=== PATIENT | female | born 1955 | race Caucasian/White ===

== ENCOUNTER 2018-02-16 07:14 | Emergency (ER) | payer OTHER ==
[~2018-02-16] VITALS: Ht 165.1 cm; Wt 69.1 kg
[~2018-02-16 07:14] MED LIST: AMLODIPINE BESYL5 M1 PO; ASPIRIN EC81 M1 PO; ATORVASTATIN CA40 MG PO; BUTALB-ACETAMI1 EACH PO; CIPRO 500MG TA500 MG PO; ECOTRIN81 MG PO; FIORICET 325 MG1 TAB PO; HYDRODIURIL 2525 MG PO; LEVOTHYROXIN0.112 MG PO; LEVOTHYROXINE112 MCG PO; LIPITOR20 M2 PO; LISINOPRIL20 M1 PO; LISINOPRIL20 MG PO; NORVASC 5MG TAB5 MG PO; PERCOCET 325 MG1 TA2 PO; PERCOCET 5-3251 EACH PO; TOPROL XL 25MG25 MG PO; TOPROL XL25 M1 PO; TYLENOL XSTR500 MG PO; VITAMIN D250000 UNIT PO; ZOFRAN ODT4 MG PO
--- NOTE | 2018-02-16 07:53 | ED ANKLE/FOOT INJURY COMPLAINT ---
History of Present Illness General Chief Complaint: Fall Stated Complaint: 2ND FALL ON BROKEN ANKLE PAIN TO GREAT Source: patient Exam Limitations: no limitations Vital Signs & Intake/Output Vital Signs & Intake/Output Vital Signs Date Time Temp Pulse Resp B/P B/P Pulse O2 O2 Flow FiO2 Mean Ox Delivery Rate 02/16 0828 99.0 88 20 120/80 98 Room Air 02/16 0721 99.3 96 18 127/80 97 Room Air Allergies Coded Allergies: NO KNOWN ALLERGIES (02/13/18) Reconcile Medications Amlodipine Besylate 5 MG TABLET 1 TAB PO DAILY BP (Reported) Aspirin (Ecotrin*) 81 MG TABLET.DR 1 TAB PO DAILY HEART/BLOOD (Reported) Atorvastatin Calcium (Lipitor) 20 MG TABLET 1 TAB PO QPM CHOLESTEROL ( Reported) Butalb/Acetaminophen/Caffeine (Skzbta-Ubjqfbwj-Uncy 50-325-40) 50 MG-325 MG-40 MG TABLET 1 TAB PO PRN HEADACHE (Reported) Ergocalciferol (Vitamin D2) (Vitamin D2) 50,000 UNIT CAPSULE 1 CAP PO QTUES SUPPLEMENT (Reported) Levothyroxine Sodium 112 MCG TABLET 1 TAB PO DAILY THYROID (Reported) Lisinopril 20 MG TABLET 1 TAB PO DAILY BP (Reported) Metoprolol Succ XL (Toprol XL) 25 MG TAB 1 TAB PO DAILY HEART/BP (Reported) Oxycodone HCl/Acetaminophen (Percocet 5-325 MG Tablet) 5 MG-325 MG TABLET 1-2 TAB PO Q6P PRN PAIN Triage Note: PT SEEN LAST AND SPLINT PLACED TO RIGHT LOWER EXT. FOR FX. PT SLIPPED OFF TOILET LAST . AND FEELS {CAST} SPLINT MOVED. PT STATES SHE HAS SURGERY SCHEDULED FOR SATURDAY BUT DOESN'T THINK SHE CAN WAIT UNTIL THEN. Triage Nurses Notes Reviewed? yes HPI: 62-year-old female with past medical history of hypertension hyperlipidemia, TIA and PA with 2 stent placement was brought to ED with chief complaint of mechanical fall day before yesterday and having pain in her right ankle and left knee. Patient reported that she had a fall last at her work. She had a mechanical fall when she was moving up and out of the stair at her work. She broke her ankle and she was brought to ED with cast was placed. She was scheduled for surgery of right ankle But patient fell down again day before yesterday. That was a mechanical fall again and she had pain in her left knee. According to the patient she twisted her knee. She also reported having excruciating pain in right ankle 10/10. She took 2 Percocet last night and now her pain is 6/10 nonradiating, continuous, aggravated with movement and relieved with rest. Patient has bruises on both legs after the fall. Patient denied chest pain, palpitation, nausea, vomiting, diarrhea, constipation , abdominal pain and dysuria. (Doni JUSTICE,Jorje) Past History Travel History Traveled to past 21 day No Medical History Neurological: TIA'S EENT: NONE Cardiovascular: HYPERTENSION SILENT M.I. CARDIAC CATH WITH STENT X 2 Renal: kidney stones Blood Disorders: ELEVATED CHOLESTEROL Surgical History Surgical History: non-contributory, N Psychosocial History What is your primary language Honduran Tobacco Use: Current Daily Use Daily Tobacco Use Amount/Type: => 5 Cigarettes daily ETOH Use: occasional use Illicit Drug Use: denies illicit drug use (Doni JUSTICE,Jorje) Medical History Any Pertinent Medical History? see below for history Family History Hx Contributory? No (Paolo JUSTICE,Alexis Sawant) Review of Systems Review of Systems Constitutional: Denies: chills, fever, weakness. EENTM: Reports: no symptoms. Respiratory: Denies: cough, short of breath, sputum production, wheezing. Cardiovascular: Denies: chest pain, palpitations, syncope. GI: Denies: abdominal pain, diarrhea, nausea, vomiting. Genitourinary: Reports: no symptoms. Musculoskeletal: Reports: see HPI. Skin: Reports: see HPI. Neurological/Psychological: Reports: no symptoms. (Doni JUSTICE,Recinos) Physical Exam Physical Exam General Appearance: well developed/nourished, no apparent distress, alert, awake Head: atraumatic, normal appearance Eyes: Bilateral: normal appearance, PERRL, EOMI. Ears, Nose, Throat: normal pharynx Neck: normal inspection, supple, full range of motion Cardiovascular/Respiratory: normal breath sounds Back: normal inspection, normal range of motion Leg/Knee/Thigh Left: normal range of motion, pain, bruise on left leg Leg/Knee/Thigh Right: cast is already placed on right ankle, bruise on right leg , able to move her right toes Ankle Left: normal inspection, normal range of motion Ankle Right: tenderness, limited range of motion, Right ankle is in cast already Foot Left: normal inspection, normal range of motion Foot Right: limited range of motion (Doni JUSTICE,Jorje) Progress Differential Diagnosis: fracture, dislocation, sprain Plan of Care: XRAY Comments: Patient already has right ankle cast on last . Considering patient has another fall day before yesterday we will repeat right ankle x-ray and also we will do left knee x-ray to rule out any fracture or dislocation. Refer x-rays comes back normal and no further problems with the right ankle we will give patient pain medication and discharged her. Patient will follow up with orthopedic surgeon for her scheduled right ankle surgery after cardiac clearance. Patient reported that she has enough supply of Percocet at home and she doesn't need any other prescription. He left knee x-ray came back normal and her right ankle x-ray showed still the same previous fracture and nothing has been changed after the second fall. Patient will be discharged and advised to follow her orthopedic surgeon for scheduled surgery. (Jorje Marion MD) Plan of Care: XRAY Diagnostic Imaging: Viewed by Me: Radiology Read. Discussed w/RAD: Radiology Read. Radiology Impression: NO ACUTE FINDINGS (Paolo JUSTICE,Alexis Sawant) Departure Departure Disposition: HOME OR SELF CARE Condition: Stable Clinical Impression Primary Impression: Sprain of left knee Secondary Impressions: Traumatic ecchymosis of left lower leg Referrals: Brandt Chew MD (PCP/Family) Additional Instructions: Please follow-up with your primary care physician in one week. Please follow-up with your orthopedic surgeon for scheduled right ankle surgery after cardiac clearance. Please take your pain medications regularly. Please take care of your sent for try to avoid any mechanical fall that further complicates your right ankle fracture. Departure Forms: Customer Survey General Discharge Information (Jorje Marion MD) Resident Co-Sign Statement Statement: ED Attending supervision documentation- [X] I saw and evaluated the patient. I have also reviewed all the pertinent lab results and diagnostic results. I agree with the findings and the plan of care as documented in the Resident's documentation. [X] I have reviewed the ED Record and agree with the Resident's documentation. [] Additions or exceptions (if any) to the Resident's note and plan are summarized below: [] (Paolo JUSTICE,Alexis Sawant)
[2018-02-16 08:28] VITALS: BP 120/80
--- NOTE | 2018-02-16 08:30 | RADIOLOGY REPORT ---
EXAMINATION: XR KNEE, LEFT CLINICAL INFORMATION: Pain post fall COMPARISON: None TECHNIQUE: Four views of the left knee. FINDINGS: Bone alignment is normal. No fracture or dislocation is seen. Joint spaces are normal. There is no joint effusion. There may be lateral and posterior varices. There is evidence of mild atherosclerotic disease. IMPRESSION: No fracture or dislocation seen.
--- NOTE | 2018-02-16 08:40 | RADIOLOGY REPORT ---
EXAMINATION: XR ANKLE, RIGHT CLINICAL INFORMATION: Pain after a fall. COMPARISON: Previous x-ray 02/13/2018 TECHNIQUE: 2 views of the right ankle. FINDINGS: There is a new overlying cast. There is no appreciable change to the trimalleolar right ankle fracture from February 13. There is slight posterior and lateral displacement of the lateral malleolus with respect to the more proximal shaft. There is slight lateral displacement of the tip of the medial malleolus. This is unchanged. Posterior malleolar fracture appears nondisplaced. The ankle mortise is unchanged with a question of widening of the distal tibiofibular space. There are degenerative changes at the first MTP joint. Soft tissues are unremarkable. IMPRESSION: No change in trimalleolar right ankle fracture from 02/13/2018.
== END 2018-02-16 08:28 ==
LOC: ERH 07:14
DX: S83.92XA Sprain of unspecified site of left knee, initial encounter (principal); S80.12XA Contusion of left lower leg, initial encounter; M25.571 Pain in right ankle and joints of right foot; W19.XXXA Unspecified fall, initial encounter
CPT/HCPCS: 73560-LT; 73600-RT

== ENCOUNTER 2018-02-21 16:11 | Observation (INO) | payer OTHER ==
[~2018-02-21] VITALS: Ht 165.1 cm; Wt 70.3 kg
--- NOTE | 2018-02-21 16:19 | ED SKIN/ALLERGY COMPLAINT ---
History of Present Illness General Chief Complaint: General Adult Stated Complaint: BIBA WITH SWELLING AND TONGUE SWELLING Source: patient, EMS Exam Limitations: no limitations Vital Signs & Intake/Output Vital Signs & Intake/Output Vital Signs Date Time Temp Pulse Resp B/P B/P Pulse O2 O2 Flow FiO2 Mean Ox Delivery Rate 02/22 0808 98.4 76 18 126/88 98 Room Air 02/22 0638 99.7 100 18 115/62 98 Room Air 02/22 0127 99.1 101 18 144/99 99 Room Air 02/21 2233 99 18 124/67 96 Room Air 02/21 1953 89 16 159/70 98 02/21 1745 176/103 02/21 1742 99.1 103 17 175/103 95 Room Air ED Intake and Output 02/22 0000 02/21 1200 Intake Total 100 Output Total Balance 100 Intake, IV 100 Patient 155 lb Weight Allergies Coded Allergies: NO KNOWN ALLERGIES (02/13/18) Reconcile Medications Amlodipine Besylate 5 MG TABLET 1 TAB PO DAILY BP (Reported) Aspirin (Ecotrin*) 81 MG TABLET.DR 1 TAB PO DAILY HEART/BLOOD (Reported) Atorvastatin Calcium (Lipitor) 20 MG TABLET 1 TAB PO QPM CHOLESTEROL ( Reported) Butalb/Acetaminophen/Caffeine (Iitcrc-Bwjbncsd-Yjdn 50-325-40) 50 MG-325 MG-40 MG TABLET 1 TAB PO PRN HEADACHE (Reported) Ergocalciferol (Vitamin D2) (Vitamin D2) 50,000 UNIT CAPSULE 1 CAP PO QTUES SUPPLEMENT (Reported) Levothyroxine Sodium 112 MCG TABLET 1 TAB PO DAILY THYROID (Reported) Lisinopril 20 MG TABLET 1 TAB PO DAILY BP (Reported) Metoprolol Succ XL (Toprol XL) 25 MG TAB 1 TAB PO DAILY HEART/BP (Reported) Oxycodone HCl/Acetaminophen (Percocet 5-325 MG Tablet) 5 MG-325 MG TABLET 1-2 TAB PO Q6P PRN PAIN Triage Nurses Notes Reviewed? yes Onset: Abrupt Duration: hour(s):, constant, continues in ED Timing: recent history Severity: moderate, severe No Modifying Factors: none HPI: 62 -year-old female comes into the emergency room for further evaluation of tongue swelling. She had surgery on her right ankle today at [facility]. She went home and woke up from a nap and found that her tongue was swollen she was having difficulty breathing and came in by ambulance. She is on lisinopril. She denies taking it today. Denies any other associated symptoms or prior history of this. (Geovanni Bernabe) Past History Travel History Traveled to past 21 day No Medical History Any Pertinent Medical History? see below for history Neurological: TIA'S EENT: NONE Cardiovascular: HYPERTENSION SILENT M.I. CARDIAC CATH WITH STENT X 2 Renal: kidney stones Blood Disorders: ELEVATED CHOLESTEROL Surgical History Surgical History: non-contributory, N Psychosocial History What is your primary language Armenian Family History Hx Contributory? No (Geovanni Bernabe) Review of Systems Review of Systems Constitutional: Reports: no symptoms. EENTM: Reports: see HPI. Respiratory: Reports: see HPI. Cardiovascular: Reports: no symptoms. GI: Reports: no symptoms. Genitourinary: Reports: no symptoms. Musculoskeletal: Reports: no symptoms. Skin: Reports: no symptoms. Neurological/Psychological: Reports: no symptoms. Hematologic/Endocrine: Reports: no symptoms. Immunologic/Allergic: Reports: no symptoms. All Other Systems: Reviewed and Negative (Geovanni Bernabe) Physical Exam Physical Exam General Appearance: well developed/nourished, mild distress Head: atraumatic Eyes: Bilateral: normal appearance. Ears, Nose, Throat: normal ENT inspection, hearing grossly normal, angioedema right side of tongue Neck: swelling right side of neck Respiratory: no respiratory distress Back: normal inspection Extremities: normal inspection, normal range of motion, no edema Neurologic/Psych: awake, alert, oriented x 3, normal mood/affect Skin: intact Lymphatic: no anterior cervical rose (Geovanni Bernabe) Progress Differential Diagnosis: abscess/cellulitis, allergic reaction, anaphylaxis, angioedema, asthma, contact dermatitis, drug reaction Plan of Care: Orders Procedure Date/time Status Regular Diet 02/22 B Active Vital Signs 02/21 2138 Active Teach/Educate 02/21 2138 Active Pain Treatment and Response 02/21 2138 Active Nutritional Intake, Monitor 02/21 2138 Active Isolation 02/21 2138 Active Patient Care Conference 02/21 2138 Active Activity/Ambulation 02/21 2138 Active Saline Lock 02/[address] in observation 02/21 2126 Active ED Holding Orders 02/21 2126 Active Patient Data 02/21 2126 Active Code Status 02/21 2126 Active Intake & Output 02/21 1823 Active COMPREHENSIVE METABOLIC PANEL 02/21 1719 Complete CBC WITHOUT DIFFERENTIAL 02/21 1719 Complete Laboratory Tests 02/21/18 171: Anion Gap 11, Estimated GFR 42 L, BUN/Creatinine Ratio 25.4 H, Glucose 126 H, Calcium 9.1, Total Bilirubin 0.3, AST 27, ALT 22, Alkaline Phosphatase 78, Total Protein 7.2, Albumin 4.1, Globulin 3.1, Albumin/Globulin Ratio 1.3, CBC w Diff MAN DIFF ORDERED, RBC 3.09 L, MCV 94.0, MCH 31.4 H, MCHC 33.4, RDW 14.2, MPV 7.7, Gran % 89.5 H, Lymphocytes % 7.1 L, Monocytes % 3.4, Eosinophils % 0, Basophils % 0, Absolute Granulocytes 8.8 H, Segmented Neutrophils 84 H, Band Neutrophils 7 H, Absolute Lymphocytes 0.7 L, Lymphocytes 5 L, Monocytes 4, Absolute Monocytes 0.3, Absolute Eosinophils 0, Absolute Basophils 0, Platelet Estimate ADEQUATE, Hypochromic-Microcytic 1+, Anisocytosis 1+, Macrocytic Cells 1+ Diagnostic Imaging: Viewed by Me: CT Scan. Discussed w/RAD: CT Scan. Radiology Impression: PATIENT: ALLISON BAIG PRESENT AGE: 62 PATIENT ACCOUNT NO: [id number] : 57 LOCATION: [facility] ORDERING PHYSICIAN: Geovanni ROTH SERVICE DATE: 02/21/18 EXAM TYPE : CAT - CT NECK WO IV CONTRAST EXAMINATION: CT NECK WITHOUT CONTRAST CLINICAL INFORMATION: Swelling right side of neck and tongue. COMPARISON: None TECHNIQUE: No IV contrast or oral contrast. Axial images obtained through the neck. Coronal and sagittal reformatted images are performed at the CT scanner DLP: 495.41. mGy -cm FINDINGS: The right submandibular gland is enlarged and swollen with edema surrounding the gland. There is no calcification associated with the gland or at the floor the mouth. The left submandibular gland is normal. Parotid glands are normal. There is no significant lymphadenopathy. There are small subcentimeter shotty lymph nodes in the neck. Lung apices are clear. There is a calcified granuloma in the right upper lobe measuring 5 mm. There is vascular calcifications of aortic arch and at the origin of the great vessels. The orbits and retrobulbar structures are unremarkable. The partially visualized intracranial structures are unremarkable. There are vascular wall calcifications at the aortic arch. The paranasal sinuses and mastoid air cells are normally aerated. There is degenerative spondylosis of the cervical spine with disc height narrowing and vacuum disc phenomena and endplate spurring C4-C5 and C5- C6. IMPRESSION: Enlargement and swelling of the right submandibular gland but no calcification is seen associated with the gland at the floor the mouth. The left submandibular gland is normal. DICTATED BY: Newton Boswell MD DATE/TIME DICTATED: 02/21/181715 BIOLOGY DEPARTMENT CHAIR:FLORENTIN DATE/TIME TRANSCRIBED:02/21/181715 CONFIDENTIAL, DO NOT COPY WITHOUT APPROPRIATE AUTHORIZATION. <Electronically signed in Other Vendor System> SIGNED BY: Newton Boswell MD 02/21/181726 Hand-Off Endorsed To: Cleveland Bello MD Endorsed Time: 2111 Pending: other (Geovanni Bernabe) Comments: Patient was discharged with the plan made by . Patient was not evaluated or seen by me. ([place] JUSTICE,[facility]) Departure Departure Clinical Impression Primary Impression: Angioedema Referrals: Brandt Chew MD (PCP/Family) Departure Forms: Customer Survey General Discharge Information (Geovanni Bernabe) Departure Comments 02/22/18, 7am... pt feels comfortable, passed an uneventful night... discussed stopping lisinopril... awaiting ride... signed out to dr. ortiz. PA/PRODUCTION REPRODUCTION MANAGER Co-Sign Statement Statement: ED Attending supervision documentation- [X] I saw and evaluated the patient. I have also reviewed all the pertinent lab results and diagnostic results. I agree with the findings and the plan of care as documented in the PA's/PRODUCTION REPRODUCTION MANAGER's documentation. [] I have reviewed the ED Record and agree with the PA's/PRODUCTION REPRODUCTION MANAGER's documentation. [] Additions or exceptions (if any) to the PAs/PRODUCTION REPRODUCTION MANAGER's note and plan are summarized below: [] ([employer] JUSTICE,Cleveland Ceballos) Departure Time of Disposition: 807 Disposition: HOME OR SELF CARE Condition: Stable PA/PRODUCTION REPRODUCTION MANAGER Co-Sign Statement Statement: ED Attending supervision documentation- [] I saw and evaluated the patient. I have also reviewed all the pertinent lab results and diagnostic results. I agree with the findings and the plan of care as documented in the PA's/PRODUCTION REPRODUCTION MANAGER's documentation. [] I have reviewed the ED Record and agree with the PA's/PRODUCTION REPRODUCTION MANAGER's documentation. [] Additions or exceptions (if any) to the PAs/PRODUCTION REPRODUCTION MANAGER's note and plan are summarized below: [] ([place] JUSTICE,[facility]) ED Attending Observation Initial Observation Note: I have seen and personally examined ALLISON BAIG on 02/21/18 at 2126. I agree with the current emergency department documentation. The disposition (admission or discharge) is uncertain at this time, she needs a period of observation for the following reason(s): Pt with angioedema of uncertain etiology.... now feeling better... but given recent surgery and pt's concern, will monitor overnight, anticipate d/c in AM. The ED Nurse caring for this patient has been personally informed as to what the patient is being observed for. (Ace JUSTICE,Cleveland Ceballos)
--- NOTE | 2018-02-21 17:27 | CT SCAN REPORT ---
EXAMINATION: CT NECK WITHOUT CONTRAST CLINICAL INFORMATION: Swelling right side of neck and tongue. COMPARISON: None TECHNIQUE: No IV contrast or oral contrast. Axial images obtained through the neck. Coronal and sagittal reformatted images are performed at the CT scanner DLP: 495.41. mGy-cm FINDINGS: The right submandibular gland is enlarged and swollen with edema surrounding the gland. There is no calcification associated with the gland or at the floor the mouth. The left submandibular gland is normal. Parotid glands are normal. There is no significant lymphadenopathy. There are small subcentimeter shotty lymph nodes in the neck. Lung apices are clear. There is a calcified granuloma in the right upper lobe measuring 5 mm. There is vascular calcifications of aortic arch and at the origin of the great vessels. The orbits and retrobulbar structures are unremarkable. The partially visualized intracranial structures are unremarkable. There are vascular wall calcifications at the aortic arch. The paranasal sinuses and mastoid air cells are normally aerated. There is degenerative spondylosis of the cervical spine with disc height narrowing and vacuum disc phenomena and endplate spurring C4-C5 and C5-C6. IMPRESSION: Enlargement and swelling of the right submandibular gland but no calcification is seen associated with the gland at the floor the mouth. The left submandibular gland is normal.
[2018-02-21 17:42] LABS: ABSOLUTE BASOPHIL COUNT 0 /CUMM (0.0-0.2); ABSOLUTE EOSINOPHIL COUNT 0 /CUMM (0.0-0.7); ABSOLUTE GRANULOCYTE CT 8.8 /CUMM (1.4-6.5); ABSOLUTE LYMPH COUNT 0.7 /CUMM (1.2-3.4); ABSOLUTE MONOCYTE COUNT 0.3 /CUMM (0.10-0.60); BASOPHIL % 0 % (0.0-2.0); EOSINOPHIL % 0 % (0-5); GRANULOCYTE % 89.5 % (42.2-75.2); MEAN CORPUSCULAR HGB 31.4 PG (27.0-31.0); MEAN CORPUSCULAR HGB CONC 33.4 G/DL (33.0-37.0); MEAN PLATELET VOLUME 7.7 FL (7.4-10.4); PLATELET COUNT 385 /CUMM (130-400); RBC DISTRIBUTION WIDTH 14.2 % (11.5-14.5); RED BLOOD CELL CT 3.09 /CUMM (4.20-5.40); WHITE BLOOD CELL COUNT 9.9 /CUMM (4.8-10.8)
[2018-02-22 08:08] VITALS: BP 126/88
== END 2018-02-22 08:11 ==
LOC: ERH 16:11 → ERHI 21:26
PROVIDERS: Physician Assistant Medical
DX: T78.3XXA Angioneurotic edema, initial encounter (principal); Z79.82 Long term (current) use of aspirin; Z86.73 Personal history of transient ischemic attack (TIA), and cerebral infarction without residual deficits; Z95.5 Presence of coronary angioplasty implant and graft; I10 Essential (primary) hypertension; Z87.442 Personal history of urinary calculi
CPT/HCPCS: 96374; 96375; J1200; J2930

== ENCOUNTER → 2018-02-21 | Day surgery (SDC) | payer OTHER ==
[~2018-02-21] VITALS: Ht 165.1 cm; Wt 68.9 kg
--- NOTE | 2018-02-21 10:49 | Operative Report ---
Operative/Inv Procedure Report Surgery Date: 02/21/18 Name of Procedure: Open reduction internal fixation right displaced bimalleolar ankle fracture. Pre-Operative Diagnosis: Right displaced bimalleolar ankle fracture. Post-Operative Diagnosis: Same. Estimated Blood Loss: scant Surgeon/Information Systems Coordinator: Claude Leiva MD/VICKY De Los Santos (see below for documentation for need of a instructor adjunct surgical technician as an extra set of skilled hands for the entirety of the case ). Anesthesia: laryngeal mask airway, block Monitors: EKG/blood pressure/oxygen saturation. IV Fluids: Lactated Ringer's. Implants: Arthrex Components: 5 hole precontoured right distal fibula plate 1. Cortical screw 1 lateral plate fixation. Locking screws (small distally and larger proximally) lateral plate fixation. 4.0 x 45 mm partially threaded cannulated screws 2 medial malleolus fracture. Urine Output: None. Drains: None. Specimens: None. Microbiology: None. Tourniquet: 105 minutes at 300 mmHg. Complications: None known. Condition: Stable. 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 She had immediate right ankle pain and deformity. She was brought to [facility] emergency room where x-rays revealed a displaced bimalleolar ankle fracture. The patient's ankle was partially reduced and splinted in the emergency room. She was discharged with instructions to see me in the office to make arrangements for operative repair of her right ankle fracture. She did see me the next day and we did review the risks and benefits and expected outcomes of nonoperative management of the fracture which was discouraged versus that of operative intervention with formal ORIF of both medial and lateral ankle malleolar fracture components with plate and screw fixation laterally and screw fixation medially. Operative management was recommended as opposed to nonoperative management. We did need to make arrangements for routine preoperative medical clearance and we did need to get authorization for the patient undergo surgery from her Worker's Compensation insurance carrier. We did anticipate allowing for 1+ week time out from the ankle fracture to allow the patient to ice and elevate the ankle to help minimize soft tissue edema and improve the general soft tissue envelope about the ankle. After answering all the patient's questions she did wish to proceed with surgery and surgical consent was obtained. Operative/Procedure Note Note: DOS: 02/21/2018 Preoperative Diagnosis: Right displaced bimalleolar ankle fracture Postoperative Diagnosis: Same Procedure: Open reduction internal fixation right bimalleolar ankle fracture with plate and screw fixation laterally and partially threaded cannulated screw fixation medially. Surgeon: Abbie: Assistant Magali PA-C (the physician's assistant professor of biochemistry was required as an extra set of skilled hands throughout the entirety of the case given the significant fracture comminution with multiple fracture fragments needing multiple hands and skill to stabilize the fracture fragments and reduce the fracture fragments to allow placement of plate and screws laterally). Findings: #1) Acceptable fracture reduction, alignment, and length achieved. #2) Acceptable hardware position and fixation achieved. #3) Fracture blistering about medial, lateral, and posterior ankle. Anesthesia: General via LMA plus supplemental right lower extremity regional block Monitors: EKG, BP, O2 sat, BIS IVF: Lactated Ringer's Implants: Arthrex 5 hole precontoured right distal fibula plate 1. Cortical screw 1 lateral plate fixation. Locking screws (small distally and larger proximally) lateral plate fixation. 4.0 x 45 mm partially threaded cannulated screws 2 medial malleolus fracture. EBL: Scant U/O: None Drains: None Specimen: None Tourniquet: 105 min. at 300 mmHg Complications: None known Disposition: PACU Procedure: The patient underwent administration of a right lower extremity regional block by the anesthesia team. Once the block was in place the patient was brought to the operating room and placed on the operative table in the supine position. [General anesthesia via LMA was induced by the anesthesiologist.] All bony prominences were well padded. A dose of IV antibiotics were given for infection prophylaxis. A well-padded tourniquet was applied to the proximal portion of the [right] thigh. The splint and dressings on the [right] leg and ankle were taken down. After takedown of splint and dressings inspection of the ankle showed reasonably significant fracture blistering about the ankle. This included blistering anterolaterally as well as blistering medially and then blistering running around the posterior aspect of the ankle. Interestingly the soft tissues laterally between the anterolateral and posterolateral margins of the fracture blisters was in good condition and this would be the proper location for lateral surgical incision placement. Medially the fracture blistering was again significant for the planned surgical incision would be slightly below the lower most extent of the medial fracture blister. We did therefore elected to move forward with the operative fixation of both malleolar fractures working around the fracture blistering as best as possible. We cleaned the foot and the ankle with alcohol. We then aspirated the fracture blisters with an 18-gauge needle. The [right] lower extremity was then prepped and draped in the usual sterile fashion. With prepping the decompressed fracture blisters became unroofed and we removed this loose skin. The underlying epithelial tissue was somewhat raw but appeared to be healing and reasonably healthy. We therefore elected to proceed with operative repair as indicated above. We began working on fixation of the lateral malleolus component of the patients ankle fracture. The skin was marked to outline the margins of the distal fibular shaft and the lateral malleolus as best as I can determine on palpation. We did also shabbir the skin for a planned lateral approach to the lateral malleolus. Once the skin was marked the extremity was exsanguinated and the pneumatic tourniquet was inflated to a pressure of [300] mmHg. The skin incision was created with a #15 scalpel blade and sharp dissection continued with scalpel dissection through the soft tissues down to bone. I did not appreciate any traversing superficial peroneal nerve branches towards the proximal aspect of the wound. The periosteal tissue was reflected off of the lateral and anterolateral and posterolateral aspects of the distal fibular shaft and lateral malleolus fracture exposure of the fracture site and bone. The fracture site was identified and was appreciated to show significant fracture comminution roughly at the level of the ankle syndesmosis. In fact there was some avulsion of the distal anterior tibial metaphysis with a small bone fragment due to the avulsion of the anterior inferior tibiofibular joint. The lateral malleolus itself showed at least 4 fracture fragments comminution but which was relatively well contained to the level of the syndesmosis without meaningful extension proximally nor distally. The displaced lateral malleolar fracture fragments were manipulated into position with a combination of longitudinal traction manual interdigitation of the fracture fragments. The instructor adjunct surgical technician was integral at this time to help maintain reduction of these multiple fracture fragments simultaneously while also maintaining fibular length and overall alignment of the lateral malleolus. We next selected an Arthrex 5 hole precontoured right-sided distal fibula plate is in appropriate length plate to span the fracture and achieve fixation of the ankle fracture proximally and distally. This was held in place initially manually. The plate was then provisionally fixed to the bone with olive tipped pins. We then began fixation of the plate to the bone distally using the targeting towers for the locking screws. This was done under fluoroscopic control and for appropriate length small locking screws in the distal end of the plate were performed. These were unicortical locking screws making sure not to violate the lateral gutter. We next turned our attention towards fixation of the plate proximally. We used the most proximal screw hole to place an appropriate length cortical screw to pull the plate snugly down to the bone. We next continued fixation of the plate proximally with appropriate length 3.5 mm locking screws. We removed the provisional pins used for fixation of the plate and we were very satisfied with the pentecostalism of the fibula length and the seemingly stable fixation of the lateral ankle fracture by spanning the fracture and fixing the fracture with plate and screws. We did appreciate some instability as we looked into the ankle seemingly coming from the avulsed piece of bone attached to the syndesmosis (anterior inferior tibiofibular ligament). We did not appreciate any actual widening of the syndesmosis fluoroscopically. We nevertheless placed some sutures through the soft tissues about the syndesmosis and into soft tissues at the distal anterior tibia to provide some fixation and reduction of this separate fracture fragment. Given the overall condition of the soft tissues as well as the swelling I elected to close the lateral ankle wound before moving over towards fixation of the medial ankle wound. With that in mind the lateral ankle wound was copiously irrigated multiple times. The deep tissues were repaired using 0 Vicryl placed in interrupted buried fashion. The more superficial subcutaneous tissues and subdermal tissues were closed using 3-0 Vicryl also placed in interrupted buried fashion. The skin given the general condition of the surrounding tissues we elected to go with suture approximation of the skin margins as opposed to heidy. With that in mind we placed vertical mattress sutures using 3-0 nylon to approximate the skin margins of the lateral ankle wound. With the lateral ankle fracture stabilized and repaired and with the lateral ankle wound now closed we turned our attention towards the medial malleolar fracture repair. With that in mind we once again evaluated the soft tissues and we decided that we can make the surgical incision below the lowermost extent of the prior fracture blister and raw new charley-epithelial tissue at the medial ankle. The surgical incision medially was created with a #15 scalpel blade. From there dissection was mainly blunt with spreading the soft tissues with hemostats. We were able to open the fracture site and then manually reduce the medial malleolus fracture fragment and hold the fracture fragment in position with a [place] elevator. We achieved provisional fixation of the medial malleolus fracture fragment with an appropriate diameter K wire for the 4.0 mm diameter cannulated screws to be used at the medial ankle. We did readjust positioning of the K wire couple of times until he was satisfied with the positioning of the K wire making sure that it traversed the fracture fragments and did not enter the joint. We did initially try to place a second K wire but had difficulty placing it initially. We therefore achieved fixation of the medial malleolus fracture fragment with an appropriate length 4.0 mm partially-threaded cannulated screw after drilling over the guidewire under fluoroscopic control across the fracture line. Once we had this first screw in good position with seemingly decent purchase of the medial malleolus fracture fragment and good reduction of the fracture fragment fluoroscopically we did eventually with some difficulty managed to place a second K wire and repeat this process for placement of a second 4.0 mm diameter by 45 mm length partially threaded cannulated screw. Once this screw was seated and both K wires for the cannulated screws were removed we evaluated the ankle fluoroscopically. Final AP and lateral fluoroscopic images of the ankle were taken and saved for hard copy documenting that we had achieved acceptable fracture reduction, alignment, and length for the lateral malleolus fracture as well as except for fracture reduction and alignment for the medial malleolus fracture fragment. We did also document that the hardware appeared to be in good position with good fixation. We next closed the medial ankle wound after irrigating the wound copiously. This was accomplished by placement of 2-0 Vicryl sutures placed in interrupted buried fashion in the superficial subcutaneous tissues and subdermal tissues. Once again the skin margins were approximated using 3-0 nylon placed in interrupted vertical mattress fashion. The wounds were washed and dried. We elected to place some Silvadene cream over the raw charley-epithelial tissues that were present after unroofing the fracture blisters. The suture lines medially and laterally were covered with Xeroform nonadherent dressing. We next applied multiple fluffed open gauze dressings about the ankle and the foot. This was overwrapped with Kerlix gauze wrap generally loosely. Over this we applied some Webril cast padding loosely from the toes distally to the upper leg proximally. We next applied a 4 inch fiberglass splint applied as a posterior splint secured with Jose Rafael bandages and allowed to set up with the ankle in neutral position. The patient was awakened from general anesthesia. She was transferred to the stretcher and brought to the recovery room in stable condition having tolerated the procedure well. Findings: #1) Acceptable fracture reduction, alignment, and length achieved. #2) Acceptable hardware position and fixation achieved. #3) Fracture blistering about medial, lateral, and posterior ankle. Discharge Disposition: PACU
--- NOTE | 2018-02-21 12:01 | RADIOLOGY REPORT ---
EXAMINATION: Intraoperative fluoroscopy CLINICAL INFORMATION: Right ankle ORIF COMPARISON: Right ankle radiographs 02/13/2018 TECHNIQUE: Intraoperative fluoroscopy was provided for use by Dr. Leiva. A total of 6 images were saved to PACS. Radiologist was not present during imaging. TOTAL FLUOROSCOPIC TIME: 1 minute and 46 seconds FINDINGS\E\IMPRESSION: Intraoperative fluoroscopy provided for use by Dr. Leiva. Please see operative note for detailed findings.
== END ==
LOC: STS 02:02
DX: S82.841A Displaced bimalleolar fracture of right lower leg, initial encounter for closed fracture (principal); W01.0XXA Fall on same level from slipping, tripping and stumbling without subsequent striking against object, initial encounter; I10 Essential (primary) hypertension; I25.10 Atherosclerotic heart disease of native coronary artery without angina pectoris; Z95.5 Presence of coronary angioplasty implant and graft; E03.9 Hypothyroidism, unspecified; F17.210 Nicotine dependence, cigarettes, uncomplicated
CPT/HCPCS: 76000; C1713; J0690; J1100; J2250